=== PATIENT | female | born 1945 | race Asian ===

== ENCOUNTER 2024-01-04 07:17 | Day surgery (SDC) | payer MEDICARE ==
[2024-01-04] VITALS (13 sets, daily range): BP systolic 124–223; BP diastolic 66–104; PULSE 77–91
[~2024-01-04] VITALS: Ht 152.4 cm; Wt 51.8 kg
[~2024-01-04 07:17] MED LIST: CLOP75TA32 PO; EMPA25TA3 PO; METF-446 PO; SODIUM CHLORIDE 0.9% 1,000 ML ONE
[2024-01-04 07:50] LABS: BASOPHILS % (AUTO) 0.4 % (0.0-2.0); EOSINOPHILS % (AUTO) 2.9 % (1.0-6.0); HEMATOCRIT 35.4 % (36-46); HEMOGLOBIN 11.5 g/dL (12.0-16.0); LYMPHOCYTES # (AUTO) 2.6 K/uL (1.0-4.8); LYMPHOCYTES % (AUTO) 28.9 % (22.0-44.0); MEAN CORPUSCULAR HEMOGLOBIN 29.8 pg (26.0-34.0); MEAN CORPUSCULAR HGB CONC 32.6 G/dL (31.0-37.0); MEAN CORPUSCULAR VOLUME 91 fL (80-100); MONOCYTES # (AUTO) 0.6 K/uL (0.1-1.0); MONOCYTES % (AUTO) 6.3 % (2.0-9.0); NEUTROPHILS # (AUTO) 5.5 K/uL (1.8-7.7); NEUTROPHILS % (AUTO) 61.5 % (40.0-70.0); PLATELET COUNT (AUTO) 396 K/uL (150-450); RED BLOOD CELL COUNT(AUTO) 3.87 MIL/uL (4.00-5.20)
[2024-01-04] MEDS ORDERED: ATOR10TA69 PO (07:55)
[2024-01-04] MEDS ORDERED: METO-325 PO (07:55)
[2024-01-04] MEDS ORDERED: TIRZ5PEN SQ (07:55)
[2024-01-04] MEDS ORDERED: FOSI20TA97 PO (07:55)
[2024-01-04 08:01] LABS: CALCIUM, TOTAL 9.1 mg/dL (8.8-10.5); CREATININE 0.99 mg/dL (0.60-1.30); INR 0.9 (0.9-1.1); POTASSIUM 3.5 mmol/L (3.5-5.1)
[2024-01-04] MEDS: SODIUM CHLORIDE 0.9% 1,000 ML IV ONE (08:20)
[2024-01-04] MEDS ORDERED: IOHEXOL 300 MG/ML 100 ML VIAL ONE (09:30)
[2024-01-04] MEDS ORDERED: NITROGLYCERIN 50 MG/D5% WATER 250 ML ONE (09:30)
[2024-01-04] MEDS ORDERED: VERAPAMIL HCL 2.5 MG/ML 2 ML VIAL ONE (09:30)
[2024-01-04] MEDS ORDERED: SODIUM BICARBONATE 50 MEQ/50 ML VIAL ONE ×2 (09:30→09:35)
[2024-01-04] MEDS ORDERED: LIDOCAINE/PF 1% 30 ML VIAL ONE (09:30)
[2024-01-04] MEDS ORDERED: HEPARIN SODIUM 1000 UNITS/NS 1,000 ML ONE (09:31)
[2024-01-04] MEDS ORDERED: MIDAZOLAM HCL 2 MG/2 ML VIAL ONE ×2 (10:05→10:17)
[2024-01-04] MEDS ORDERED: FentaNYL CITRATE PF 100 MCG/2 ML VIAL ONE (10:05)
[2024-01-04] MEDS ORDERED: LABETALOL HCL 5 MG/ML 20 ML VIAL IVP ONE (10:23)
[2024-01-04] MEDS: IOHEXOL 300 MG/ML 100 ML VIAL ICOR ONE (10:31)
[2024-01-04] MEDS: LIDOCAINE 1% 30 ML/SOD BICARB 8.4% 4 ML SQ ONE (10:31)
[2024-01-04] MEDS ORDERED: HydrALAZINE HCL 20 MG/ML VIAL ONE (10:32)
[2024-01-04] MEDS: FentaNYL CITRATE PF 100 MCG/2 ML VIAL IVP ONE ×2 (10:32→10:42)
[2024-01-04] MEDS: MIDAZOLAM HCL 2 MG/2 ML VIAL IVP ONE ×2 (10:32→10:41)
[2024-01-04] MEDS: HEPARIN SODIUM 1000 UNITS/NS 1,000 ML IARTER ONE (10:40)
[2024-01-04] MEDS: LABETALOL HCL 5 MG/ML 20 ML VIAL IVP ONE (10:41)
[2024-01-04] MEDS ORDERED: CLOPIDOGREL BISULFATE 300 MG TABLET PO ONE (11:45)
[2024-01-04 13:05] LABS: GLUCOMETER DEV NAME(LOC) SDS.; GLUCOSE,POINT OF CARE 157 MG/DL (70-110)
== END 2024-01-04 15:55 | disposition home or self-care (01) ==
LOC: CATHLAB 07:17
PROVIDERS: ATTEND Internal Medicine Cardiovascular Disease
DX: I25.118 Atherosclerotic heart disease of native coronary artery with other forms of angina pectoris (principal); R94.39 Abnormal result of other cardiovascular function study; T82.855A Stenosis of coronary artery stent, initial encounter; R05.3 Chronic cough; G47.33 Obstructive sleep apnea (adult) (pediatric); E78.00 Pure hypercholesterolemia, unspecified; M19.90 Unspecified osteoarthritis, unspecified site; Z79.899 Other long term (current) drug therapy; X58.XXXA Exposure to other specified factors, initial encounter
CPT/HCPCS: 93458; 99156; 99157; 80048; 82962; 85025; 85610; 85730; 36415; 93005; C1760; J3010; J1644; J0360; J3490 ×5; J2250; J7030; Q9967